=== PATIENT | male | born 1935 | race Caucasian/White ===

== ENCOUNTER 2024-02-12 15:30 | Inpatient (IN) | payer OTHER, SELFPAY ==
[2024-02-12 13:08] VITALS: BP 136/62
--- NOTE | 2024-02-12 13:27 | ED.GENMED ---
History of Present Illness
<Kailash Mcfarlane DO - Last Filed: 02/12/24 19:08>
General
Chief Complaint: Urinary Symptoms
Source: patient
Exam Limitations: none
Time Seen by Provider: 02/12/24 13:40
Nursing documentation reviewed up to this point in time: agreed with
History of Present Illness
History of Present Illness:
88-year-old male presents complaining of blood in his urine that began last night. He takes Eliquis. He follows with Dr. Villavicencio for prostate hypertrophy.
<Dexter Velazquez Jr., PA-C - Last Filed: 02/12/24 17:16>
Travel History
Have you had any contact with someone who has COVID-19?: No
Do you have any symptoms of coronavirus? Fever > 100 degrees, chills, cough, shortness of breath, sore throat, loss of taste or smell, muscle aches, or headache?: No
Past History
<DO Stacy Diallo Last Filed: 02/12/24 19:08>
Past History
ED Past Medical History: Other (Prostate hypertrophy)
ED Past Surgical History: Orthopedic (Laminectomy with fusion)
<Dexter Velazquez Jr., PA-C - Last Filed: 02/12/24 17:16>
Past History
ED Past Medical History: HTN, Hypercholesterolemia and NIDDM
Social History
Tobacco: Non-smoker
Alcohol: Occasional
Drug: None
Personal:
Living: with family
Review of Systems
<Kailash Mcfarlane DO - Last Filed: 02/12/24 19:08>
Review of Systems
Allergies reviewed?: Yes
All Other Systems: Not applicable
Constitutional: Reports no symptoms
EENT: Reports no symptoms
Respiratory: Reports no symptoms
Cardiac: Reports no symptoms
ABD/GI: Reports no symptoms
: Reports bleeding
Musculoskeletal: Reports no symptoms
Skin: Reports no symptoms
Neurological: Reports no symptoms
Endocrine: Reports no symptoms
Hematologic/Lymphatic: Reports no symptoms
Phy Exam
<Kailash Mcfarlane, DO - Last Filed: 02/12/24 19:08>
Physical Exam
Physical Exam:
Physical Exam
General: no apparent distress, not acutely ill
Neck: supple. no meningeal signs. normal posterior pharynx
Heart: s1/s2 regular rate and rhythm, no murmur. equal radial
pulses.
HEENT: Pupils equal round reactive to light, EOMI
Lungs: no acute respiratory distress. clear bilaterally
Abdomen: normal bowel sounds. not tender. no CVAT
Neuro: alert and oriented. no focal neurological deficits cranial nerves II through XII intact
Skin: no rash
Psychiatric: well kept. interactive and cooperative
Extremities: no edema. no calf tenderness. negative homans. good distal pulses
Genitourinary Exam Male
Exam Male: circumcised, no CVAT, no discharge, normal external genitalia, normal testicular exam, no evidence of trauma, no lesions, no testicular swelling and no testicular tenderness
Course
<Kailash Mcfarlane, DO - Last Filed: 02/12/24 19:08>
Orders/Labs/Results
Orders:
Orders
02/12/24 13:45
Complete Blood Count/With Diff Urgent
Comprehensive Metabolic Panel Urgent
PTT Urgent
Prothrombin Time Urgent
02/12/24 13:54
CBI- Treatment PRN
Solution: ns
Irrigate to Clear?: Yes
Reyes Placement- Treatment ONCE
Reason for insertion: Acute Retention
02/12/24 13:55
IV Insert/Care/Rem.- Treatment PRN
02/12/24 14:04
Lidocaine 2% [Lidocaine Uro-Jet 2%] 1 syringe .ROUTE .STK-MED ONE
02/12/24 14:22
Type+Screen Urgent
02/12/24 Dinner
2000 calorie (17 carb) Diabetic
At Your Request: Limited Participation
02/12/24 15:15
Admit/Transfer Patient As Directed
Co-Sign Provider:
Level of Care: Inpatient admission
Assign to:: Telemetry
Physician / Group: Nawaf magallanes
Diagnosis: Gross hematuria
Reason for Telemetry: Arrhythmia
Date to Stop Telemetry: 02/15/24
Time to Stop Telemetry: 11:00
Reason for Hospitalization: gross hematuria requiring CBI
Expected length of stay greater than two midnights?: No
ELOS- Estimated Length of Stay in days: 48
I certify the patient meets the requirements for IP care: Yes
Reason for Overnight Stay: Bleeding/Bleeding Risk
02/12/24 15:28
Code Status As Directed
Resuscitation Status: Do not resuscitate
Reached after discussion with pt or family/Healthcare POA: Yes
Based on pt advanced directive or healthcare POA form: Yes
02/12/24 17:04
Dextrose 50%-Water [Dextrose 50% Syringe] 12.5 grams IV [id number] PRN
Glucagon [GlucaGen] 1 mg IM PRN PRN
Insulin Aspart Corrective Low [Novolog Flexpen-Low Resistance] See Protocol SC AC
02/12/24 17:04
Advance Diet as Tolerated As Directed
Goal Diet: 2000 esha/ 17 CHO Diabetic
Bedside Glucose Monitoring As Directed
Frequency: AC&HS
Additional Instructions:: Change to q6h if pt on TPN, tube feeding or not eating
Sequential Compression Device [Pneumatic Compression Sleeves] As Directed
Type: Knee high
Peripheral Venous Lwr Ext Bilat US [US Periph Venous LOWER Ext Edd] Routine
Comment:
Reason For Exam: h/o DVT
US Kidneys and US Bladder [US Renal With Bladder] Routine
Comment:
Reason For Exam: Gross hematuria
DX DVT Prevention Inpt Video Routine
DX Deep Vein Thrombosis Video Routine
02/12/24 20:00
Cholecalciferol (Vitamin D3) [VITAMIN D3 (cholecalciferol)] 25 mcg PO BID
02/12/24 22:00
Insulin Glargine Lantus [Lantus] 14 units Subcutaneous Insulin Syringe [Syringe-Insulin] 0 unit SC HS
Latanoprost [Xalatan Ophthalmic Solution] See Dose Instructions RIGHT EYE HS
02/13/24 06:00
CBC/With Diff [Complete Blood Count/With Diff] IN AM
CMP [Comprehensive Metabolic Panel] IN AM
Glycohemoglobin (HgbA1c) IN AM
PSA Free & Total [S] IN AM
02/13/24 08:00
Atorvastatin [Lipitor] 10 mg PO DAILY
Finasteride [Proscar] 5 mg PO DAILY
02/15/24 11:00
DC Protocol for Telemetry ONCE
Abnormal Lab Results
02/12/24
13:45
RBC 3.79 L 10^6/uL
(4.70-6.10)
Hgb 12.2 L g/dL
(13.0-18.0)
Hct 36.1 L %
(39.0-52.0)
MCV 95.3 H fL
(80.0-94.0)
MCH 32.2 H pg
(27.0-31.0)
Absolute Monos (auto) 0.7 H 10^3/uL
(0.1-0.6)
PT 15.7 H Sec
(11.4-14.6)
APTT 38.5 H Sec
(23.4-35.0)
BUN 32 H mg/dl
(9-20)
Glucose 240 H mg/dl
(70-99)
Total Protein 6.2 L g/dl
(6.3-8.2)
Albumin 3.4 L g/dl
(3.5-5.0)
02/12/24 13:45
02/12/24 13:45
Vital Signs
Initial and Last Documented VS:
Initial Vital Signs
Temp Pulse Resp BP Pulse Ox
98.2 F 91 16 136/62 98
02/12/24 13:08 02/12/24 13:08 02/12/24 13:08 02/12/24 13:08 02/12/24 13:08
Last Documented Vital Signs
Temp Pulse Resp BP Pulse Ox
97.9 F 70 18 139/72 99
02/12/24 16:45 02/12/24 16:45 02/12/24 16:45 02/12/24 16:45 02/12/24 16:45
<Dexter Velazquez Jr., PA-C - Last Filed: 02/12/24 17:16>
Orders/Labs/Results
Orders:
Orders
02/12/24 13:45
Complete Blood Count/With Diff Urgent
Comprehensive Metabolic Panel Urgent
PTT Urgent
Prothrombin Time Urgent
02/12/24 13:54
CBI- Treatment PRN
Solution: ns
Irrigate to Clear?: Yes
Reyes Placement- Treatment ONCE
Reason for insertion: Acute Retention
02/12/24 13:55
IV Insert/Care/Rem.- Treatment PRN
02/12/24 14:04
Lidocaine 2% [Lidocaine Uro-Jet 2%] 1 syringe .ROUTE .STK-MED ONE
02/12/24 14:22
Type+Screen Urgent
02/12/24 Dinner
2000 calorie (17 carb) Diabetic
At Your Request: Limited Participation
02/12/24 15:15
Admit/Transfer Patient As Directed
Co-Sign Provider:
Level of Care: Inpatient admission
Assign to:: Telemetry
Physician / Group: Nawaf magallanes
Diagnosis: Gross hematuria
Reason for Telemetry: Arrhythmia
Date to Stop Telemetry: 02/15/24
Time to Stop Telemetry: 11:00
Reason for Hospitalization: gross hematuria requiring CBI
Expected length of stay greater than two midnights?: No
ELOS- Estimated Length of Stay in days: 48
I certify the patient meets the requirements for IP care: Yes
Reason for Overnight Stay: Bleeding/Bleeding Risk
02/12/24 15:28
Code Status As Directed
Resuscitation Status: Do not resuscitate
Reached after discussion with pt or family/Healthcare POA: Yes
Based on pt advanced directive or healthcare POA form: Yes
02/12/24 17:04
Dextrose 50%-Water [Dextrose 50% Syringe] 12.5 grams IV [id number] PRN
Glucagon [GlucaGen] 1 mg IM PRN PRN
Insulin Aspart Corrective Low [Novolog Flexpen-Low Resistance] See Protocol SC AC
02/12/24 17:04
Advance Diet as Tolerated As Directed
Goal Diet: 2000 esha/ 17 CHO Diabetic
Bedside Glucose Monitoring As Directed
Frequency: AC&HS
Additional Instructions:: Change to q6h if pt on TPN, tube feeding or not eating
Sequential Compression Device [Pneumatic Compression Sleeves] As Directed
Type: Knee high
Peripheral Venous Lwr Ext Bilat US [US Periph Venous LOWER Ext Edd] Routine
Comment:
Reason For Exam: h/o DVT
US Kidneys and US Bladder [US Renal With Bladder] Routine
Comment:
Reason For Exam: Gross hematuria
DX DVT Prevention Inpt Video Routine
DX Deep Vein Thrombosis Video Routine
02/12/24 20:00
Cholecalciferol (Vitamin D3) [VITAMIN D3 (cholecalciferol)] 25 mcg PO BID
02/12/24 22:00
Insulin Glargine Lantus [Lantus] 14 units Subcutaneous Insulin Syringe [Syringe-Insulin] 0 unit SC HS
Latanoprost [Xalatan Ophthalmic Solution] See Dose Instructions RIGHT EYE HS
02/13/24 06:00
CBC/With Diff [Complete Blood Count/With Diff] IN AM
CMP [Comprehensive Metabolic Panel] IN AM
Glycohemoglobin (HgbA1c) IN AM
PSA Free & Total [S] IN AM
02/13/24 08:00
Atorvastatin [Lipitor] 10 mg PO DAILY
Finasteride [Proscar] 5 mg PO DAILY
02/15/24 11:00
DC Protocol for Telemetry ONCE
Abnormal Lab Results
02/12/24
13:45
RBC 3.79 L 10^6/uL
(4.70-6.10)
Hgb 12.2 L g/dL
(13.0-18.0)
Hct 36.1 L %
(39.0-52.0)
MCV 95.3 H fL
(80.0-94.0)
MCH 32.2 H pg
(27.0-31.0)
Absolute Monos (auto) 0.7 H 10^3/uL
(0.1-0.6)
PT 15.7 H Sec
(11.4-14.6)
APTT 38.5 H Sec
(23.4-35.0)
BUN 32 H mg/dl
(9-20)
Glucose 240 H mg/dl
(70-99)
Total Protein 6.2 L g/dl
(6.3-8.2)
Albumin 3.4 L g/dl
(3.5-5.0)
02/12/24 13:45
02/12/24 13:45
Vital Signs
Initial and Last Documented VS:
Initial Vital Signs
Temp Pulse Resp BP Pulse Ox
98.2 F 91 16 136/62 98
02/12/24 13:08 02/12/24 13:08 02/12/24 13:08 02/12/24 13:08 02/12/24 13:08
Last Documented Vital Signs
Temp Pulse Resp BP Pulse Ox
97.9 F 70 18 139/72 99
02/12/24 16:45 02/12/24 16:45 02/12/24 16:45 02/12/24 16:45 02/12/24 16:45
<Kailash Mcfarlane, DO - Last Filed: 02/12/24 19:08>
MDM/Problems Addressed
Differential Diagnosis Includes:
Hematuria, urinary retention, anemia
MDM/Problems Addressed:
88-year-old male with hematuria, CBI initiated. Admit to hospitalist. Urology, Dr. Villavicencio to see.
Chronic conditions affecting care: HTN and Other (BPH)
Acute Exacerbation and/or Progression of Chronic Illness: HTN and Other (BPH)
<Kailash Mcfarlane, DO - Last Filed: 02/12/24 19:08>
*Pulse Oximetry
Patient hypoxic: no
*EKG
Interpreted by ED Provider?: NA
*Handicapped Teacher Interpretation
Rate: Handicapped Teacher- N/A
*Critical Care Note
Total Time (30-74mins, 75-104mins- exclusive of procedures): Not Applicable
<Kailash Mcfarlane, DO - Last Filed: 02/12/24 19:08>
Patient Management
Social determinants of health affecting care: Living situation
Discussion with other providers: Hospitalist and Business Process Representative (urology, Dr. Villavicencio)
Escalation/DeEscalation of care consider admission/obs:
Admit indicated
ED Attending Note
<Edcheo Velazquez Jr., PA-C - Last Filed: 02/12/24 17:16>
-
Portions of this chart may have been created with voice recognition software.� Occasional wrong word or��sound alike� substitutions may have occurred due to the inherent limitations of voice recognition software.
Discharge Plan
Departure
Patient Disposition: Admit
Date of Disposition: 02/12/24
Time of Disposition: 14:30
Admit to: Telemetry
Presentation/result/management discussed w/ accepting MD/DO: Hospitalist
Patient with high blood pressure during this ER visit?: Yes
Condition: Fair
Discharge Problem:
Hematuria
Interventions
Interventions:
*Risk Screen - Suicide Last Done: 02/12/24 16:57
*General Assessment Last Done: 02/12/24 13:08
*Neglect/Abuse Screening Last Done: 02/12/24 13:08
ED- Fall Risk Assessment Last Done: 02/12/24 14:40
*ED COVID-19 Vaccine History Last Done: 02/12/24 16:57
*Nursing Disposition Last Done: 02/12/24 16:39
ED-Male Genitourinary Assessment Last Done: 02/12/24 13:42
Discharge Date and Time
Discharge Date/Time: 02/12/24 16:40
[2024-02-12 13:42] VITALS: BMI 26.0
[2024-02-12 13:57] LABS: % Basophils 0.7 % (0-2); % Eosinophils 3.1 % (0-6); % Immature Granulocytes 0.4 % (0-0.5); % Lymphocytes 22.5 % (20.5-51.1); % Monocytes 8.5 % (1.7-9.3); % Neutrophils 64.8 % (42.2-75.2); Absolute Basophils 0.1 10^3/uL (0-0.2); Absolute Eosinophils 0.2 10^3/uL (0-0.7); Absolute Lymphocytes 1.7 10^3/uL (1.2-3.4); Absolute Monocytes 0.7 10^3/uL (0.1-0.6); Hematocrit 36.1 % (39.0-52.0); Hemoglobin 12.2 g/dL (13.0-18.0); Mean Corp Hgb Conc. 33.8 g/dL (33.0-37.0); Mean Corpuscular Hgb 32.2 pg (27.0-31.0); Mean Corpuscular Volume 95.3 fL (80.0-94.0); Mean Platelet Volume 8.7 fL (7.4-10.4); Nucleated Red Blood Cells % 0 % (-); Platelet Count 267 10^3/uL (130-400); Red Blood Cell Count 3.79 10^6/uL (4.70-6.10); Red Cell Dist. Width 11.9 % (11.5-14.5); White Blood Cell Count 7.7 10^3/uL (4.8-10.8)
[2024-02-12 14:05] LABS: INR 1.27; PT 15.7 Sec (11.4-14.6)
[2024-02-12 14:06] LABS: APTT 38.5 Sec (23.4-35.0)
[2024-02-12 14:32] LABS: ALT (SGPT) 18 U/L (0-50); AST (SGOT) 26 U/L (17-59); Albumin 3.4 g/dl (3.5-5.0); Alkaline Phosphatase 103 U/L (38-126); Blood Urea Nitrogen 32 mg/dl (9-20); Calcium 9.5 mg/dl (8.4-10.2); Carbon Dioxide 26 mmol/L (22-30); Chloride 105 mmol/L (98-107); Estimated Creatinine Clearance 46 ml/min; Glucose 240 mg/dl (70-99); Potassium 4.1 mmol/L (3.5-5.1); Sodium 139 mmol/L (135-145); Total Bilirubin 0.8 mg/dl (0.2-1.3); Total Protein 6.2 g/dl (6.3-8.2); eGFR > 60.00
[2024-02-12 14:50] VITALS: BP 115/74
[2024-02-12 15:00] VITALS: BP 130/55
--- NOTE | 2024-02-12 15:22 | W.PN.UPDATE ---
Update Note
Progress Note Update
Patient seen and examined
Discussed with resident.
Impression:
Gross hematuria
Eliquis induced coagulopathy.
BPH.
Conditions prior to admission:
Essential hypertension
Dyslipidemia
Bilateral lower extremity edema secondary to venous insufficiency.
History of left lower extremity/peroneal DVT.
Anticoagulation with Eliquis for DVT.
Type 2 diabetes diet controlled.
Daily alcohol use
Plan:
Gross hematuria.
No evidence for retention/clot retention.
Less likely infection as patient presents afebrile with no other urinary symptoms other than gross hematuria.
CBI initiated in ED.
Hold Eliquis
Check urinalysis and culture.
Urology consultation.
Renal/bladder ultrasound.
Update PSA.
Continue Flomax and finasteride
Chronic lower extremity edema secondary to bilateral venous insufficiency
History of left lower extremity DVT treated with Eliquis
Most recent peripheral Doppler 2020 with resolution.
Recheck peripheral Doppler.
Hold Eliquis due to gross hematuria.
Essential hypertension.
Dyslipidemia
Patient denies any history of cardiac conditions or arrhythmias.
No prior history of CVA.
Continue preadmission regimen including Lipitor
Continue lisinopril.
Again to hold Lasix for now.
Type 2 diabetes diet controlled.
Update hemoglobin A1c
Basal bolus protocol
Carbohydrate controlled diet
Daily alcohol use.
Patient denies any history of excessive use or withdrawal in the past.
--- NOTE | 2024-02-12 15:54 | HPS.HSE ---
Family Physician
-
Family Physician: Markell Gamino
Chief Complaint
-
Gross blood in the urine X 1 day.
History of Present Illness
88-year-old male presents to the hospital with a chief complaint of gross blood in the urine that started in the last night but progressively became worse over the afternoon today. He denies fever, chills, burning micturition, urinary retention,
hesitancy, urgency, abdominal pain, flank pain. She also denies shortness of breath, chest pain, history of PE, palpitations. He takes Eliquis for DVT.
Medical History
Past Medical History
Past Medical History: Reports Other
Additional Past Medical History:
(Type 2 diabetes mellitus, diet controlled, stage III CKD, degenerative disc disease, history of DVT in the left lower extremity, BPH without LUTS, hypertension, hyperlipidemia, atherosclerosis of abdominal aorta, peripheral neuropathy, cellulitis
of right leg, colonic polyps.)
Past Surgical History: Reports None
Social History
Tobacco: Former Smoker (Quit smoking 30 years ago.)
Alcohol: Daily (1 or 2 drinks.)
Drug: None
Personal:
Living: With Family
Employment: Retired
Family History
Family History: Not pertinent
Allergies / Home Medications
Allergies reflects when Allergies were last updated in [employer].
Home Medications with original date entered in [employer]
Allergy/Medication List:
Allergies
Allergy/AdvReac Type Severity Reaction Status Date / Time
No Known Allergies Allergy Verified 06/04/19 11:10
Home Medications
lisinopril 20 mg tablet 20 mg PO DAILY Blood Pressure 04/18/17
apixaban 2.5 mg tablet (Eliquis) 2.5 mg PO BID Blood Clot Prevention/Tx 02/12/24
atorvastatin 10 mg tablet (Lipitor) 10 mg PO DAILY High Cholesterol 02/12/24
cholecalciferol (vitamin D3) 25 mcg (1,000 unit) tablet (Vitamin D3) 25 mcg PO BID Supplement 02/12/24
finasteride 5 mg tablet 5 mg PO DAILY prostate issues 02/12/24
furosemide 20 mg tablet (Lasix) 20 mg PO DAILY Fluid Retention/Swelling 02/12/24
latanoprost 0.005 % eye drops 1 drp RIGHT EYE HS Eye Condition 02/12/24
tamsulosin 0.4 mg capsule (Flomax) 0.4 mg PO DAILY Urinary Issue 02/12/24
Review of Systems
-
History Source: Patient
Constitutional: Reports No Symptoms
Respiratory: Reports No Symptoms
Cardiac: Reports No Symptoms
Abdomen/GI: Reports No Symptoms
: Reports Bleeding and Other (No dysuria, frequency, incontinence, urinary retention, flank pain.)
Musculoskeletal: Reports No Symptoms
Neurological: Reports No Symptoms
Endocrine: Reports No Symptoms
Hematologic/Lymphatic: Reports No Symptoms
Psych: Reports No Symptoms
Physical Exam
Vital Signs
Vital Signs
Temp Pulse Resp BP Pulse Ox
98.2 F 91 16 130/55 100
02/12/24 13:08 02/12/24 13:08 02/12/24 13:08 02/12/24 15:00 02/12/24 15:45
Physical Exam
General: No Apparent Distress and Comfortable (On room air.)
HEENT: NormoCephalic, Anicteric and Moist mucous membranes
Respiratory: Clear and Other (No wheezes, rales, rhonchi.)
Cardiac: S1/S2, Regular Rhythm and Other (No murmurs, rubs, gallops.)
GI: Soft, Non Tender, Non Distended, Normal Bowel Sounds and No Hepatosplenomegaly
Musculoskeletal: No Clubbing, No Cyanosis and No Edema
Skin: Warm
Neuro: AO x 3 and No Motor Deficits
Psych: Calm
Laboratory Results
-
02/12/24 13:45
02/12/24 13:45
Laboratory Results
PT 15.7 Sec (11.4-14.6) H 02/12/24 13:45
INR 1.27 02/12/24 13:45
APTT 38.5 Sec (23.4-35.0) H 02/12/24 13:45
Total Bilirubin 0.8 mg/dl (0.2-1.3) 02/12/24 13:45
AST 26 U/L (17-59) 02/12/24 13:45
ALT 18 U/L (0-50) 02/12/24 13:45
Alkaline Phosphatase 103 U/L (38-126) 02/12/24 13:45
Impression/Plan
-
IMPRESSION:
88-year-old male with PMHx significant for DVT on Eliquis, BPH, hypertension, hyperlipidemia presents to the emergency room with gross hematuria X 1 day.
PLAN:
Gross hematuria-
Eliquis induced coagulopathy versus BPH versus UTI.
No evidence for urinary retention or clot retention.
Infection less likely given patient is afebrile, with no urinary symptoms and no leukocytosis. Pending urine analysis and culture.
Reyes insertion and continuous bladder irrigation initiated in the emergency room.
Hold Eliquis and Lasix.
Renal bladder ultrasound ordered.
PSA levels ordered-pending. Continue Flomax and finasteride.
Urology consultation.
Chronic left LLE edema
secondary to DVT, h/o of cellulitis in the past.
History of DVT, patient on Eliquis.
Most recent peripheral [id number] evidence of DVT.
Eliquis is on hold, recheck peripheral vascular ultrasound to assess for DVT.
Type 2 diabetes mellitus-
check HbA1c in the a.m.
Diabetic diet. Accu-Cheks before meals.
Insulin basal bolus regimen.
Not on any home medications.
Carbohydrate controlled diabetic diet.
Essential hypertension, hyperlipidemia
No history of erythematous or CVA.
Continue home medication regimen with lisinopril and Lipitor.
Monitor hemodynamics.
Daily alcohol use-
No history of excess use or withdrawal in the past.
DVT prophylaxis-
SCD.
CODE STATUS-full.
[2024-02-12 16:45] VITALS: BP 139/72
--- NOTE | 2024-02-12 17:49 | W.PN.URO.CBU ---
Today's Communication / Plan
-
try and wean cbi to of by am
Assessment / Plan
-
hematuira due to weliquos restart fimstride try andwean cbi
Diagnosis
-
Date of Service: February 12, 2024
-
Patient Diagnosis:bph off finasteride in [facility]
Post Op Day:
Subjective
-
les hematuir a painless
Objective
-
Vital Signs
Temp Pulse Resp BP Pulse Ox
97.9 F 70 18 139/72 99
02/12/24 16:45 02/12/24 16:45 02/12/24 16:45 02/12/24 16:45 02/12/24 16:45
Laboratory Results
02/12/24 13:45
02/12/24 13:45
Review of Systems
-
: Bleeding
Physical Exam
-
General - well developed, well nourished, no acute distress
Chest - clear bilaterally
Abdomen - soft, non-tender, positive bowel sounds, no CVAT, no incisional pain or distention
Genitalia - normal
Rectal - normal
Skin - warm & dry with no rash
Neuro - AOx3, no motor deficits
Extremities - no clubbing, no cyanosis, no edema
Incision - clean, dry
Dressing - clean, dry, intact
Care Review
Data Reviewed
Discussed with: Hospitalist and Nursing
CT Scan: Image Pers Reviewed
[2024-02-12 18:15] LABS: Glucose - Point of Care 118 mg/dl (70-99)
[2024-02-12 19:00] VITALS: BP 128/62
[2024-02-12] MEDS: VITAMIN D3 (cholecalciferol) 25 MCG PO (20:32)
[2024-02-12] MEDS: XALATAN OPHTHALMIC SOLUTION 1 DROP RIGHT EYE (20:32)
[2024-02-12 21:35] LABS: Glucose - Point of Care 213 mg/dl (70-99)
[2024-02-12] MEDS: LANTUS 0.140000000000000013 UNITS SC (21:46)
[2024-02-12 21:54] LABS: Urine Albumin 1+ (Neg - Trace); Urine Bilirubin Negative (Negative); Urine Character Slightly Cloudy (Clear); Urine Color Red; Urine Glucose Negative (Negative); Urine Ketone Negative (Negative); Urine Leukocyte 2+ (Negative); Urine Nitrite Negative (Negative); Urine Occult Blood 4+ (Negative); Urine Urobilinogen 1+ (Neg - 1+)
[2024-02-12 22:06] LABS: Urine Red Blood Cell 50-60 /HPF (0-2); Urine Squamous Cell 0-2 /LPF (Few); Urine White Cell 26-30 /HPF (0-5)
[2024-02-12 22:07] LABS: Urine Bacteria Few (Negative)
[2024-02-12 23:40] VITALS: BP 138/61
[2024-02-13 03:41] VITALS: BP 144/63
--- NOTE | 2024-02-13 03:54 | DOWNTIME ---
There was a [employer] Client Cracking Unit Operator Downtime on 02/12/2024 from 0100 to 02/13/2024 at 0300. Downtime documentation of patient's care, including medication administrations, has been reconciled in the electronic record per guidelines. Refer to the
patient's paper chart under the miscellaneous tab to see printed paper medication records and downtime forms.
--- NOTE | 2024-02-13 06:42 | PTCARENOTE ---
CBI DCed per order at 0640.Urine is clear and free of clots at this time. Pt. tolerated catheter removal without issue. Pt. instructed to void into urinal and notify staff when he is able to void. VSS. Pt resting comfortably at this time, will
continue to monitor.
[2024-02-13 07:00] VITALS: BP 127/60
[2024-02-13 07:31] LABS: Glucose - Point of Care 135 mg/dl (70-99)
[2024-02-13 07:46] LABS: % Basophils 0.6 % (0-2); % Eosinophils 2.2 % (0-6); % Immature Granulocytes 0.7 % (0-0.5); % Lymphocytes 12.1 % (20.5-51.1); % Monocytes 7.3 % (1.7-9.3); % Neutrophils 77.1 % (42.2-75.2); Absolute Basophils 0.1 10^3/uL (0-0.2); Absolute Eosinophils 0.3 10^3/uL (0-0.7); Absolute Immature Granulocytes 0.1 10^3/uL (0-0.05); Absolute Lymphocytes 1.7 10^3/uL (1.2-3.4); Hematocrit 41.4 % (39.0-52.0); Hemoglobin 13.9 g/dL (13.0-18.0); Mean Corp Hgb Conc. 33.6 g/dL (33.0-37.0); Mean Corpuscular Hgb 32.2 pg (27.0-31.0); Mean Corpuscular Volume 95.8 fL (80.0-94.0); Mean Platelet Volume 8.8 fL (7.4-10.4); Nucleated Red Blood Cells % 0 % (-); Platelet Count 335 10^3/uL (130-400); Red Blood Cell Count 4.32 10^6/uL (4.70-6.10); White Blood Cell Count 14.2 10^3/uL (4.8-10.8)
[2024-02-13] MEDS: FLOMAX 0.400000000000000022 MG PO (07:54)
[2024-02-13] MEDS: ZESTRIL 20 MG PO (07:54)
[2024-02-13] MEDS: PROSCAR 5 MG PO (07:54)
[2024-02-13] MEDS: LIPITOR 10 MG PO (07:54)
[2024-02-13] MEDS: VITAMIN D3 (cholecalciferol) 25 MCG PO (07:54)
[2024-02-13 08:17] LABS: ALT (SGPT) 19 U/L (0-50); AST (SGOT) 32 U/L (17-59); Alkaline Phosphatase 127 U/L (38-126); Blood Urea Nitrogen 29 mg/dl (9-20); Calcium 9.9 mg/dl (8.4-10.2); Carbon Dioxide 27 mmol/L (22-30); Chloride 104 mmol/L (98-107); Estimated Creatinine Clearance 51 ml/min; Glucose 167 mg/dl (70-99); Potassium 5.1 mmol/L (3.5-5.1); Sodium 138 mmol/L (135-145); Total Bilirubin 1.3 mg/dl (0.2-1.3); Total Protein 7.1 g/dl (6.3-8.2); eGFR > 60.00
--- NOTE | 2024-02-13 08:34 | W.PN.URO.CBU ---
Today's Communication / Plan
-
encourage po make sure voidng call uroogu if distended pain expect hematuria min small clots
Assessment / Plan
-
hematuira due to weliquos restart fimstride t cano out doing void truial k[home if voiding today without cano re start finasteride 5 =mgs qd and up to [facility];ist about eliquis
Diagnosis
-
Date of Service: February 13, 2024
-
Patient Diagnosis:
Post Op Day:
Patient Diagnosis:bph off finasteride in [facility]
Post Op Day:
Subjective
-
hematuria subsided cano out has not voided in 2 ours
Objective
-
Vital Signs
Temp Pulse Resp BP Pulse Ox
98.1 F 60 18 144/63 99
02/13/24 03:41 02/13/24 03:41 02/13/24 03:41 02/13/24 03:41 02/13/24 03:41
Intake and Output
02/12/24 02/13/24 02/14/24
06:59 06:59 06:59
Intake Total 240 / 240
Output Total 1750 / 1750
Balance -1510 / -1510
Intake:
Oral fluids 240 / 240
Output:
True Urine Output from CBI 1750 / 1750
Laboratory Results
02/13/24 07:16
02/13/24 07:16
Review of Systems
-
: Bleeding
Physical Exam
-
General - well developed, well nourished, no acute distress
Chest - clear bilaterally
Abdomen - soft, non-tender, positive bowel sounds, no CVAT, no incisional pain or distention
Genitalia - normal
Rectal - normal
Skin - warm & dry with no rash
Neuro - AOx3, no motor deficits
Extremities - no clubbing, no cyanosis, no edema
Incision - clean, dry
Dressing - clean, dry, intact
--- NOTE | 2024-02-13 08:38 | W.PN.HOSP.TC ---
Today's Communication/Plan
-
Pending peripheral Doppler ultrasound, ultrasound of the bladder and kidneys.
Continue voiding trial, and bladder scan protocol.
Assessment / Plan
Assessment / Plan
Assessment-
88-year-old male with PMHx significant for DVT on Eliquis, BPH without LUTS, hypertension, hyperlipidemia presents to the hospital with a chief complaint of gross hematuria X 1 day
Plan-
Gross hematuria.
Eliquis induced coagulopathy versus BPH versus UTI.
No evidence for urinary retention or clot retention.
Infection less likely given patient is afebrile, with no urinary symptoms and no leukocytosis. Pending urine analysis and culture.
Reyes insertion and continuous bladder irrigation initiated in the emergency room.
Hematuria improved, Reyes catheter and bladder irrigation discontinued. Continue voiding trial
Hold Eliquis and Lasix.
Renal bladder ultrasound ordered.
PSA levels ordered-pending. Continue Flomax and finasteride.
Urology on board.
Chronic left LLE edema
secondary to DVT, h/o of cellulitis in the past.
History of DVT, patient on Eliquis.
Most recent peripheral [id number] evidence of DVT.
Eliquis is on hold, recheck peripheral vascular ultrasound to assess for DVT-pending
Leukocytosis-
Possibly secondary to CBI and Reyes.
No symptoms of fevers,chills,dysuria or hesitancy.
Monitor for UTI signs and symptoms.
Type 2 diabetes mellitus-
check HbA1c in the a.m.
Diabetic diet. Accu-Cheks before meals.
Insulin basal bolus regimen.
Not on any home medications.
Carbohydrate controlled diabetic diet.
Essential hypertension, hyperlipidemia
No history of erythematous or CVA.
Continue home medication regimen with lisinopril and Lipitor.
Monitor hemodynamics.
Daily alcohol use-
No history of excess use or withdrawal in the past.
DVT prophylaxis-
SCD.
CODE STATUS-DNR.
Anticipated Discharge: 24 - 48 hours
Subjective/Interval History
-
Date of Service: February 13, 2024
Patient reports passing pink-colored urine.
He denies any shortness of breath chest pain palpitations.
Objective Data
-
Labs:
Laboratory Results
02/13/24
07:16
WBC 14.2 H
Hgb 13.9
Hct 41.4
Plt Count 335 D
Sodium 138
Potassium 5.1
Chloride 104
Carbon Dioxide 27
BUN 29 H
Creatinine 0.9
Glucose 167 H
Calcium 9.9
Total Bilirubin 1.3
AST 32
ALT 19
Alkaline Phosphatase 127 H
Vital Signs:
Vital Signs
Temp Pulse Resp BP Pulse Ox
98.1 F 60 18 144/63 99
02/13/24 03:41 02/13/24 03:41 02/13/24 03:41 02/13/24 03:41 02/13/24 03:41
I&O
02/12/24 02/13/24 02/14/24
06:59 06:59 06:59
Intake Total 240 / 240
Output Total 1750 / 1750
Balance -1510 / -1510
Review of Systems
-
History Source: Patient
Constitutional: Reports No Symptoms
EENT: Reports No Symptoms Reported
Respiratory: Reports No Symptoms
Cardiac: Reports No Symptoms
Abdomen/GI: Reports No Symptoms
Genitourinary: Reports No Symptoms and Other ([place]-colored urine, status post gross hematuria yesterday.)
Musculoskeletal: Reports Other (Left leg swelling)
Skin: Reports No Symptoms
Neuro: Reports No Symptoms
Endocrine: Reports No Symptoms
Hematologic / Lymphatic: Reports Bleeding
Allergy / Immunology: Reports No Symptoms
Physical Exam
-
General: No Apparent Distress and Comfortable (On room air)
HEENT: Normocephalic, Atraumatic and Moist Mucous Membranes
Respiratory: Clear to Auscultation and Other (No wheezes, rales, rhonchi.)
Cardiac: Regular Rhythm, S1/S2 and Other (No murmurs, rubs, gallops)
GI: Soft, Nontender, Nondistended, Normal Bowel Sounds and No Hepatosplenomegaly
Genito-urinary: No Costovertebral Tender
Musculoskeletal: No Clubbing, No Cyanosis and Edema, Left Lower Extrem (1+ pitting edema)
Skin: Dry
Neuro: AO x 3 and No Motor Deficits
Psych: Calm
[2024-02-13 10:41] LABS: Glycohemoglobin (HgbA1c) 7.6 % (4.0-5.6)
[2024-02-13 12:20] LABS: Glucose - Point of Care 171 mg/dl (70-99)
[2024-02-13] MEDS: NOVOLOG FLEXPEN-MODERATE RESISTANCE 1 UNITS SC ×2 (12:46→17:09)
--- NOTE | 2024-02-13 13:48 | W.PN.UPDATE ---
Update Note
Progress Note Update
Impression:
Gross hematuria
Eliquis induced coagulopathy.
BPH.
Conditions prior to admission:
Essential hypertension
Dyslipidemia
Bilateral lower extremity edema secondary to venous insufficiency.
History of left lower extremity/peroneal DVT.
Anticoagulation with Eliquis for DVT.
Type 2 diabetes diet controlled.
Daily alcohol use
Plan:
Gross hematuria.
No evidence for retention/clot retention.
Less likely infection as patient presents afebrile with no other urinary symptoms other than gross hematuria.
CBI initiated in ED.
Hold Eliquis
Urine culture pending, less likely infection
Renal/bladder ultrasound.
Update PSA ending
Hematuria improved, Reyes catheter/CBI removed today. Continue voiding trial.
Continue Flomax and finasteride
Chronic lower extremity edema secondary to bilateral venous insufficiency
History of left lower extremity DVT treated with Eliquis
Most recent peripheral Doppler 2020 with resolution.
Recheck peripheral Doppler. Pending
Hold Eliquis due to gross hematuria.
Essential hypertension.
Dyslipidemia
Patient denies any history of cardiac conditions or arrhythmias.
No prior history of CVA.
Continue preadmission regimen including Lipitor
Continue lisinopril.
Again to hold Lasix for now.
Type 2 diabetes diet controlled.
Update hemoglobin A1c 7.6
Basal bolus protocol
Carbohydrate controlled diet
Daily alcohol use.
Patient denies any history of excessive use or withdrawal in the past.
--- NOTE | 2024-02-13 14:18 | CM ---
Patient seen bedside with spouse.
Patient independent prior to admission without assistive devices.
patient lives in an apartment in independent living at [facility].
patients spouse has had [facility] in the past.
patient drives.
patient denies home care needs at this time.
PCP: Dr Gamino
Pharmacy: [facility] [address]
Plan: home no needs anticiapted
[2024-02-13 16:00] VITALS: BP 133/59
--- NOTE | 2024-02-13 16:42 | W.DCSUMMARY ---
Discharge Summary
Discharge Data
Date of Admission: 02/12/24
Date of Discharge: 02/13/24
-
Pending Results: Yes
Additional Pending Results:
PSA levels
Hospital Course
Assessment-
88-year-old male with PMHx significant for DVT on Eliquis, BPH without LUTS, hypertension, hyperlipidemia presents to the hospital with a chief complaint of gross hematuria X 1 day.
Hospital Course-
During his 1 day hospital course, he received Reyes's catheterization and continuous bladder irrigation for gross hematuria, and his Eliquis, Lasix was put on hold.
Patient's white blood cell count was found to be elevated at 14.
After improvement in the gross hematuria today in the a.m., patient's Reyes catheter was removed, and patient was kept on voiding trial. Patient was able to pass 300 mL of dark urine on 2 different occasions with postvoid residual volume at 80.
Peripheral vascular ultrasound for DVT is negative. Hence Eliquis is stopped.
Ultrasound of the bladder and the kidneys-02/12/2024-
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
Given his discontinuation of the Eliquis for 24 hours now, urology recommends outpatient follow-up for cystoscopy. Patient updated regarding the same.
Lasix is on hold. Lasix can be resumed from day after.
Discharge Plan
-
Patient Disposition: Home (Routine Discharge)
Discharge Diagnosis/Procedures: Eliquis induced coagulopathy
Condition: Good
Diet: No restrictions
Activity: No restrictions
Driving Restrictions: As prior to admission
Bathing Restrictions: None
Others Tests: Cystoscopy
Instructions: Blood in the Urine (Hematuria), Adult (DC)
Referrals:
Al Coon DO [Active] - in one to two months
Behzad Villavicencio MD [Active] - in less than 1 week
Markell Gamino DO [Family Provider] -
Prescriptions:
Continued
lisinopril 20 MG tablet
20 mg PO DAILY
latanoprost 0.005 % Drops
1 drp RIGHT EYE HS
atorvastatin [Lipitor] 10 mg Tablet
10 mg PO DAILY
tamsulosin [Flomax] 0.4 mg Capsule
0.4 mg PO DAILY
finasteride 5 mg Tablet
5 mg PO DAILY
cholecalciferol (vitamin D3) [Vitamin D3] 25 mcg (1,000 unit) Tablet
25 mcg PO BID
Held
furosemide [Lasix] 20 mg Tablet
20 mg PO DAILY
Hold Instructions: Resume on 02/14/24.
Discontinued
Eliquis 2.5 mg Tablet
2.5 mg PO BID
Discharge Orders:
Discharge Patient (As Directed); Ordered 02/13/24
Ordered By: Antonia Damian
Discharge Date and Time
Print Language: TAJIK
[2024-02-13 17:06] LABS: Glucose - Point of Care 158 mg/dl (70-99)
== END 2024-02-13 17:42 | disposition home or self-care (01) | DRG 813 ==
LOC: 4 WEST ACU 15:30
PROVIDERS: Student in an Organized Health Care Education/Training Program; ADMITTING PHYSICIAN Internal Medicine; CONSULT PHYSICIAN Specialist; EMERGENCY PHYSICIAN Emergency Medicine; FAMILY PHYSICIAN Internal Medicine
DX: D68.32 Hemorrhagic disorder due to extrinsic circulating anticoagulants (principal); D68.9 Coagulation defect, unspecified; Z66 Do not resuscitate; N18.30 Chronic kidney disease, stage 3 unspecified; I12.9 Hypertensive chronic kidney disease with stage 1 through stage 4 chronic kidney disease, or unspecified chronic kidney disease; E78.00 Pure hypercholesterolemia, unspecified; I87.2 Venous insufficiency (chronic) (peripheral); E11.22 Type 2 diabetes mellitus with diabetic chronic kidney disease; E11.40 Type 2 diabetes mellitus with diabetic neuropathy, unspecified; Z87.891 Personal history of nicotine dependence
CPT/HCPCS: 76770; 80053; 81003; 81015; 82962; 83036; 84153; 84154; 85025; 85610; 85730; 86850; 86900; 86901; 87070; 87086; 93970; 99285

== ENCOUNTER 2024-03-18 06:27 | Day surgery (SDC) | payer OTHER, SELFPAY ==
[2024-03-18] VITALS (10 sets, daily range): BP systolic 107–161; BP diastolic 58–68; BMI 24.2
[2024-03-18] MEDS: CYSVIEW KIT 100 MG INTRAVES (12:40)
[2024-03-18 13:09] LABS: Glucose - Point of Care 132 mg/dl (70-99)
[2024-03-18] MEDS: NORMOSOL-R 1000 IV (13:10)
[2024-03-18] MEDS: SYRINGE NON-PUMP 50 MG IRRIG (15:29)
[2024-03-18] MEDS: SYRINGE NON-PUMP 50 ML IRRIG (15:29)
[2024-03-18 15:39] LABS: Glucose - Point of Care 126 mg/dl (70-99)
== END 2024-03-18 17:23 | disposition home or self-care (01) ==
LOC: SDS 06:27
PROVIDERS: ATTENDING PHYSICIAN Specialist
DX: C67.9 Malignant neoplasm of bladder, unspecified (principal); Z79.01 Long term (current) use of anticoagulants
CPT/HCPCS: 52240; C9738; 88307; 82962; 87070; 93005; A9589

== ENCOUNTER → 2024-03-31 07:38 | Outpatient (REF) | payer OTHER, SELFPAY | LOC: PET 07:38 | PROVIDERS: ATTENDING PHYSICIAN Specialist | DX: C67.1 Malignant neoplasm of dome of bladder (principal) | CPT/HCPCS: 78815; A9552 ==

== ENCOUNTER → 2024-04-28 08:19 | Outpatient (REF) | payer OTHER, SELFPAY ==
[2024-04-28 09:05] VITALS: BP 146/64; BP_SYST 71
[2024-04-28] MEDS: ANCEF 10 IV (09:34)
[2024-04-28 10:27] VITALS: BP 113/58
[2024-04-28 10:28] VITALS: BP 113/58; BP_SYST 76
[2024-04-28 10:30] VITALS: BP 118/53
== END ==
LOC: RADI 08:19
PROVIDERS: ATTENDING PHYSICIAN Internal Medicine Hematology & Oncology
DX: C67.9 Malignant neoplasm of bladder, unspecified (principal)
CPT/HCPCS: 36561; 76937; 77001; 99152; 99153; C1788

== ENCOUNTER → 2025-01-07 08:09 | Outpatient (REF) | payer OTHER, SELFPAY | LOC: HWRAD 08:09 | PROVIDERS: ATTENDING PHYSICIAN Internal Medicine Hematology & Oncology; FAMILY PHYSICIAN Internal Medicine | DX: I82.492 Acute embolism and thrombosis of other specified deep vein of left lower extremity (principal); C67.1 Malignant neoplasm of dome of bladder; C67.9 Malignant neoplasm of bladder, unspecified | CPT/HCPCS: 71250 ==

== ENCOUNTER → 2025-01-08 14:25 | Outpatient (REF) | payer OTHER, SELFPAY | LOC: RAD 14:25 | PROVIDERS: ATTENDING PHYSICIAN Internal Medicine Hematology & Oncology; FAMILY PHYSICIAN Internal Medicine | DX: I82.492 Acute embolism and thrombosis of other specified deep vein of left lower extremity (principal) | CPT/HCPCS: 74178; Q9967 ==

== ENCOUNTER → 2025-05-07 07:11 | Outpatient (REF) | payer OTHER, SELFPAY ==
[2025-05-07 08:34] LABS: Hematocrit 34.3 % (39.0-52.0); Hemoglobin 11.6 g/dL (13.0-18.0); Mean Corp Hgb Conc. 33.8 g/dL (33.0-37.0); Mean Corpuscular Volume 99.4 fL (80.0-94.0); Nucleated Red Blood Cells % 0 % (-); Platelet Count 177 10^3/uL (130-400); Red Cell Dist. Width 13.3 % (11.5-14.5)
[2025-05-07 10:14] LABS: Urine Character Clear (Clear)
[2025-05-07 11:43] LABS: Urine Red Blood Cell 0-2 /HPF (0-2); Urine White Cell 0-2 /HPF (0-5)
[2025-05-07 13:07] LABS: ALT (SGPT) 16 U/L (0-50); AST (SGOT) 22 U/L (17-59); Albumin 4.0 g/dl (3.5-5.0); Alkaline Phosphatase 91 U/L (38-126); Blood Urea Nitrogen 57 mg/dl (9-20); Calcium 9.3 mg/dl (8.4-10.2); Carbon Dioxide 23 mmol/L (22-30); Chloride 105 mmol/L (98-107); Glucose 185 mg/dl (70-99); Potassium 4.3 mmol/L (3.5-5.1); Sodium 141 mmol/L (135-145); Total Protein 6.9 g/dl (6.3-8.2); eGFR 35.98
== END ==
LOC: REG 07:11
PROVIDERS: ATTENDING PHYSICIAN Internal Medicine
DX: R33.8 Other retention of urine (principal); N17.9 Acute kidney failure, unspecified; D64.9 Anemia, unspecified
CPT/HCPCS: 36415; 80053; 81003; 81015; 85025; 87086

== ENCOUNTER → 2025-05-14 07:09 | Outpatient (REF) | payer OTHER, SELFPAY | LOC: RAD 07:09 | PROVIDERS: ATTENDING PHYSICIAN Internal Medicine | DX: R63.4 Abnormal weight loss (principal) | CPT/HCPCS: 74177; Q9967 ==

== ENCOUNTER → 2025-06-02 14:06 | Outpatient (REF) | payer OTHER, SELFPAY | LOC: RAD 14:06 | PROVIDERS: ATTENDING PHYSICIAN Internal Medicine Hematology & Oncology | DX: I82.492 Acute embolism and thrombosis of other specified deep vein of left lower extremity (principal); C67.1 Malignant neoplasm of dome of bladder; C67.9 Malignant neoplasm of bladder, unspecified | CPT/HCPCS: 71046 ==